=== PATIENT | female | born 1980 | race Caucasian/White ===

== ENCOUNTER 2023-01-21 22:53 | Outpatient (CLI) | payer OTHER, SELFPAY ==
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
== END 2023-01-22 00:20 | disposition home or self-care (01) ==
LOC: OB 01-23 08:48
PROVIDERS: Referring Provider Specialist; Visit Provider Specialist
DX: O26.892 Other specified pregnancy related conditions, second trimester (principal); V48.1XXA Car passenger injured in noncollision transport accident in nontraffic accident, initial encounter; Z3A.27 27 weeks gestation of pregnancy
CPT/HCPCS: 59025; G0378; G0379